=== PATIENT | female | born 2000 | race Hispanic/Latino ===

== ENCOUNTER 2022-06-27 22:11 | Emergency (ER) | payer OTHER ==
[2022-06-27 22:58] LABS: #Basophils 0.1 10x3/uL (0.0-0.2); #Eosinphils 0.1 10x3/uL (0.0-0.5); #Monocytes 0.4 10x3/uL (0.0-1.1); #Neutrophils 2.7 10x3/uL (1.5-8.4); %Basophils 0.9 % (0.0-2.0); %Eosinophils 1.1 % (0.0-6.0); %Lymphocytes 40.9 % (18.0-47.0); %Monocytes 7.5 % (0.0-10.0); %Neutrophils 49.4 % (40.0-75.0); Hemoglobin 11.8 g/dL (12.0-15.5); Mean Corpuscular HGB CONC 32.9 g/dL (32.0-36.0); Mean Corpuscular Hemoglobin 29.5 pg (27.0-33.0); Mean Corpuscular Volume 89.8 fl (81.6-98.3); Mean Platelet Volume 9.7 fl (7.4-10.4); Platelet Count 275 10x3/uL (150-450); White Blood Cell (WBC) Count 5.4 10x3/uL (3.5-10.5)
[2022-06-27 23:03] LABS: BHCG - Serum Negative (NEGATIVE); Pregs Control Background? CLEAR/WHITE (CLR/WHITE); Pregs Control Bar Appear? YES (CONTROL BAR)
[2022-06-27 23:09] LABS: ALT (SGPT) 9 U/L (8-55); AST (SGOT) 16 U/L (5-34); Albumin 4.5 g/dL (3.5-5.0); Alkaline Phosphatase 47 U/L (40-100); Anion Gap 15 mmol/L (10-20); BUN (Urea Nitrogen) 19 mg/dL (7.0-18.7); Bilirubin, Total 0.3 mg/dL (0.2-1.2); Calc. Creatinine Clearance 0 mL/min (70-130); Calcium 9.5 mg/dL (7.8-10.44); Carbon Dioxide 24 mmol/L (22-29); Chloride 105 mmol/L (98-107); Estimated GFR 89; Globulin 2.5 g/dL (2.4-3.5); Glucose 92 mg/dL (70-105); Lipase 31 U/L (8-78); Potassium 3.8 mmol/L (3.5-5.1); Sodium 140 mmol/L (136-145)
== END 2022-06-28 00:35 | disposition home or self-care (01) ==
LOC: CSHERS 22:11
DX: K59.00 Constipation, unspecified (principal); K62.5 Hemorrhage of anus and rectum; Z79.899 Other long term (current) drug therapy
CPT/HCPCS: 74018; 80053; 83690; 84703; 85025

== ENCOUNTER 2022-10-06 23:05 | Emergency (ER) | payer MEDICAID, OTHER ==
[2022-10-06 23:20] LABS: #Basophils 0.1 10x3/uL (0.0-0.2); #Eosinphils 0.1 10x3/uL (0.0-0.5); #Monocytes 0.5 10x3/uL (0.0-1.1); #Neutrophils 2.7 10x3/uL (1.5-8.4); %Basophils 0.9 % (0.0-2.0); %Eosinophils 0.9 % (0.0-6.0); %Lymphocytes 37.6 % (18.0-47.0); %Monocytes 8.5 % (0.0-10.0); %Neutrophils 51.9 % (40.0-75.0); Hemoglobin 11.8 g/dL (12.0-15.5); Mean Corpuscular Hemoglobin 29.2 pg (27.0-33.0); Mean Corpuscular Volume 91.3 fl (81.6-98.3); Mean Platelet Volume 9.7 fl (7.4-10.4); Platelet Count 288 10x3/uL (150-450); RBC Distribution Width 13.1 % (11.5-14.5); Red Blood Cell (RBC) Count 4.04 10x6/uL (3.90-5.03); White Blood Cell (WBC) Count 5.3 10x3/uL (3.5-10.5)
[2022-10-06 23:23] LABS: Bilirubin Neg (Negative); Blood, Urine Negative (Negative); Clarity Clear (Clear); Glucose, Urine (Dipstick) Normal (Negative); Ketone, Urine Negative (Negative); Leukocyte Negative (Negative); Nitrite Negative (Negative); Protein, Urine (Dipstick) Negative (Neg-Trace); Urobilinogen Normal mg/dL (Less than 2)
[2022-10-06 23:31] LABS: CAUTI Indications for Culture Alt mental st,lethar; RBC/HPF None Seen HPF (0-3); WBC/HPF 0-3 HPF (0-3)
[2022-10-06 23:32] LABS: Bacteria/HPF Rare-Few HPF (None Seen); Urine Culture Reflex No No
[2022-10-06 23:33] LABS: Amphetamine Not Detected (NotDetected); Barbiturates Screen Not Detected (NotDetected); Benzodiazepine Screen Not Detected (NotDetected); Cocaine Metabolite Screen Not Detected (NotDetected); Methadone Not Detected (NotDetected); Methamphetamine Not Detected (NotDetected); Opiate Screen Not Detected (NotDetected); Oxycodone Screen Not Detected (NotDetected); Phencyclidine (PCP) Not Detected (NotDetected); THC/Cannabinoid Screen Not Detected (NotDetected); Tricyclic Screen Not Detected (NotDetected)
[2022-10-06 23:36] LABS: Acetaminophen Less than 10 mcg/mL (10.0-30.0); Alcohol Less than 10.0 mg/dL (Less than 10); Salicylate Less than 8.0 mg/dL (15.0-30.0)
[2022-10-06 23:38] LABS: ALT (SGPT) 11 U/L (8-55); AST (SGOT) 16 U/L (5-34); Albumin 4.8 g/dL (3.5-5.0); Alkaline Phosphatase 44 U/L (40-100); Anion Gap 15 mmol/L (10-20); BHCG - Serum Negative (NEGATIVE); BUN (Urea Nitrogen) 14 mg/dL (7.0-18.7); Bilirubin, Total 0.2 mg/dL (0.2-1.2); Calc. Creatinine Clearance 0 mL/min (70-130); Calcium 9.5 mg/dL (7.8-10.44); Carbon Dioxide 25 mmol/L (22-29); Chloride 106 mmol/L (98-107); Estimated GFR 94; Globulin 2.1 g/dL (2.4-3.5); Glucose 94 mg/dL (70-105); Potassium 3.5 mmol/L (3.5-5.1); Pregs Control Background? CLEAR/WHITE (CLR/WHITE); Pregs Control Bar Appear? YES (CONTROL BAR); Protein, Total 6.9 g/dL (6.0-8.3); Sodium 142 mmol/L (136-145)
== END 2022-10-07 02:25 | disposition home or self-care (01) ==
LOC: CSHERS 23:05 → EEVIPCON 23:05 → CSHERS 10-07 02:25
DX: R45.851 Suicidal ideations (principal)
CPT/HCPCS: 80053; 80306; 80307; 81001; 83735; 84443; 84703; 85025; 93005; 93010; 99285

== ENCOUNTER 2023-01-14 15:18 | Emergency (ER) | payer MEDICAID ==
[~2023-01-14 15:18] MED LIST: Iopamidol 300 61% 100 ML VIAL FS ONE
[2023-01-14 16:04] LABS: Bilirubin Neg (Negative); Blood, Urine Negative (Negative); Clarity Clear (Clear); Glucose, Urine (Dipstick) Normal (Negative); Ketone, Urine Negative (Negative); Leukocyte Negative (Negative); Nitrite Negative (Negative); Protein, Urine (Dipstick) Negative (Neg-Trace); Specific Gravity, Urine 1.015 (1.005-1.030); Urobilinogen Normal mg/dL (Less than 2)
[2023-01-14] MEDS ORDERED: Ketorolac Tromethamine 30 MG/ML VIAL ONE (16:16)
[2023-01-14 16:25] LABS: Bacteria/HPF Rare-Few HPF (None Seen); CAUTI Indications for Culture Pelvic or flank pain; RBC/HPF None Seen HPF (0-3); Squamous Epithelial 0-3 HPF (0-3); WBC/HPF None Seen HPF (0-3)
[2023-01-14 16:26] LABS: Urine Culture Reflex No No
[2023-01-14 16:47] LABS: #Basophils 0.1 10x3/uL (0.0-0.2); #Eosinphils 0.1 10x3/uL (0.0-0.5); #Monocytes 0.4 10x3/uL (0.0-1.1); #Neutrophils 2.6 10x3/uL (1.5-8.4); %Basophils 1.3 % (0.0-2.0); %Eosinophils 1.5 % (0.0-6.0); %Lymphocytes 32.8 % (18.0-47.0); %Neutrophils 56.2 % (40.0-75.0); Hematocrit 38.4 % (34.9-44.5); Hemoglobin 12.7 g/dL (12.0-15.5); Mean Corpuscular HGB CONC 33.1 g/dL (32.0-36.0); Mean Corpuscular Hemoglobin 30.3 pg (27.0-33.0); Mean Corpuscular Volume 91.6 fl (81.6-98.3); Mean Platelet Volume 9.9 fl (7.4-10.4); Platelet Count 272 10x3/uL (150-450); RBC Distribution Width 12.5 % (11.5-14.5); Red Blood Cell (RBC) Count 4.19 10x6/uL (3.90-5.03); White Blood Cell (WBC) Count 4.6 10x3/uL (3.5-10.5)
[2023-01-14 17:01] LABS: BHCG - Serum Negative (NEGATIVE); Pregs Control Background? CLEAR/WHITE (CLR/WHITE); Pregs Control Bar Appear? YES (CONTROL BAR)
[2023-01-14 17:07] LABS: ALT (SGPT) 10 U/L (8-55); AST (SGOT) 18 U/L (5-34); Albumin 4.7 g/dL (3.5-5.0); Alkaline Phosphatase 46 U/L (40-100); Anion Gap 14 mmol/L (10-20); BUN (Urea Nitrogen) 11 mg/dL (7.0-18.7); Bilirubin, Total 0.2 mg/dL (0.2-1.2); Calc. Creatinine Clearance 0 mL/min (70-130); Calcium 9.7 mg/dL (7.8-10.44); Carbon Dioxide 24 mmol/L (22-29); Chloride 106 mmol/L (98-107); Estimated GFR 96; Globulin 2.6 g/dL (2.4-3.5); Glucose 99 mg/dL (70-105); Lipase 27 U/L (8-78); Potassium 3.9 mmol/L (3.5-5.1); Protein, Total 7.3 g/dL (6.0-8.3); Sodium 140 mmol/L (136-145)
== END 2023-01-14 18:20 | disposition home or self-care (01) ==
LOC: CSHERS 15:18
DX: K59.00 Constipation, unspecified (principal); R10.32 Left lower quadrant pain; R10.12 Left upper quadrant pain
CPT/HCPCS: 74177; 80053; 81001; 83690; 84703; 85025; 96361; 96374; J1885; Q9967